=== PATIENT | male | born 1945 | race Two or more races ===

== ENCOUNTER 2025-03-17 17:30 | Inpatient (IN) | payer OTHER ==
[~2025-03-17] VITALS: Ht 162.6 cm; Wt 60.0 kg
[2025-03-17 18:00] LABS: Hematocrit 41.3 % (41.0-53.0); Hemoglobin 13.6 g/dL (13.5-17.5); Mean Corpuscular Hemoglobin 28.0 pg (28.0-32.0); Mean Corpuscular Volume 85.0 fL (80.0-100.0); Nucleated Red Blood Cells % 0.1 %
[2025-03-17 18:18] LABS: Chloride 100 mmol/L (98-107); Potassium 4.2 mmol/L (3.5-5.1); Sodium 140 mmol/L (136-145)
[2025-03-17 18:19] LABS: Anion Gap 12 (5-15); Carbon Dioxide 28 mmol/L (20-31)
[2025-03-17 18:20] LABS: Calcium 10.0 mg/dL (8.7-10.4)
[2025-03-17 18:24] LABS: BUN/Creatinine Ratio 13.3 (10.0-20.0); Blood Urea Nitrogen 13 mg/dL (9-23)
[2025-03-17 18:57] LABS: Glucose 136 mg/dL (74-106)
--- NOTE | 2025-03-17 19:13 | DVH ---
CHEST RADIOGRAPH INDICATION: CHEST PAIN TECHNIQUE: Frontal and lateral view of the chest was obtained COMPARISON: XR CHEST 2 VIEW on DOS: 03/05/25 FINDINGS/IMPRESSION: The lungs are clear. The cardiomediastinal silhouette is unremarkable. No pleural effusion or pneumothorax. No acute osseous abnormality.
--- NOTE | 2025-03-17 19:51 | ED.PDOC ---
History of Present Illness HPI Comments This is a 79-year-old male who comes in with chief complaint of shortness a breath as well as some chest pressure. The patient states that he went to the urgent care after he was experiencing approximately two days of chest pain that has substernal and radiates towards the back. He describes the pain as pres sure-like in nature. It is associated with shortness for breath but no nausea or vomiting. When the paramedics arrived, the patient was also hypertensive with a systolic over 200. EN route, the patient had an IV Hep-Lock established and the patient was given aspirin as well as one dose of nitroglycerin. At this time the patient is denying any chest pain. Chief Complaint: Chest Pain Time Seen by MD: 17:41 Reviewed Notes: Nurses Notes, Senior Occupational Therapist Notes, Medications, Allergies (No allergies to medications) Allergies: Coded Allergies: NO KNOWN ALLERGIES (Unverified , 03/17/25) Information Source: Patient, Emergency Med Personnel Mode of Arrival: EMS Severity: Moderate Timing: Days (Symptoms started two days ago) Duration: Since onset Prehospital treatment: 12 Lead EKG, ASA, Furniture Salesperson, IVF, NTG (Nitroglycerin x1 dose) Location: Substernal chest pain that radiates towards the back Associated signs and symptoms The chest pain is pressure-like and associated with some shortness for breath Past Medical History PAST MEDICAL HISTORY: HTN Surgical History: Denies all surgeries Family History Family History: No family hx of Cancer, No family hx of DM, No family hx of Heart marcos Social History Smoker: Non-Smoker Alcohol: Denies ETOH Use Drugs: Denies Drug Use Lives In: Home Constitutional: denies: chills, diaphoresis, fatigue, fever, malaise, sweats, weakness, others EENTM: denies: blurred vision, double vision, ear bleeding, ear discharge, ear drainage, ear pain, ear ringing, eye pain, eye redness, hearing loss, mouth pain , mouth swelling, nasal discharge, nose bleeding, nose congestion, nose pain, photophobia, tearing, throat pain, throat swelling, voice changes, others Respiratory: denies: cough, hemoptysis, orthopnea, SOB at rest, shortness of breath, SOB with excertion, stridor, wheezing, others Cardiovascular: denies: chest pain, dizzy spells, diaphoresis, Dyspnea on exertion, edema, irregular heart beat, left arm pain, lightheadedness, palpitations, PND, syncope, others Gastrointestinal: denies: abdomen distended, abdominal pain, blood streaked bowels, constipated, diarrhea, dysphagia, difficulty swallowing, hematemesis, melena, nausea, poor appetite, poor fluid intake, rectal bleeding, rectal pain, vomiting, others Genitourinary: denies: burning, dysuria, flank pain, frequency, hematuria, incontinence, penile discharge, penile sore, pain, testicle pain, testicle swelling, urgency, others Neurological: denies: dizziness, fainting, headache, left sided numbness, left sided weakness, numbness, paresthesia, pre-existing deficit, right sided numbness, right sided weakness, seizure, speech problems, tingling, tremors, weakness, others Musculoskeletal: denies: back pain, gout, joint pain, joint swelling, muscle pain, muscle stiffness, neck pain, others Integumetry: denies: bruises, change in color, change in hair/nails, dryness, laceration, lesions, lumps, rash, wounds, others Allergic/Immunocompromised: denies: Difficulty Healing, Frequent Infections, Hives, Itching, others Hematologic/Lymphatic: denies: anemia, blood clots, easy bleeding, easy bruising, swollen glands, others Endocrine: denies: excessive hunger, excessive sweating, excessive thirst, excessive urination, flushing, intolerance to cold, intolerance to heat, unexplained weight gain, unexplained weight loss, others Psychiatric: denies: anxiety, bipolar disorder, depression, hopeless, panic disorder, schizophrenia, sleepless, suicidal, others Physical Exam General Appearance: Moderate Distress HEENT: Normal ENT Inspection, Pharynx Normal, TMs Normal Neck: Full Range of Motion, Non-Tender, Normal, Normal Inspection Respiratory: Chest Non-Tender, Lungs Clear, No Accessory Muscle Use, No Respiratory Distress, Normal Breath Sounds Cardiovascular: No Edema, No JVD, No Murmur, No Gallop, Normal Peripheral Pulses, Regular Rate/Rhythm Breast Exam: Deferred Gastrointestinal: No Organomegaly, Non Tender, No Pulsatile Mass, Normal Bowel Sounds, Soft Genitalia: Deferred Pelvic: Deferred Rectal: Deferred Extremities: No calf tenderness, Normal capillary refill, Normal inspection, Normal range of motion, Non-tender, No pedal edema Musculoskeletal : Apperance: Normal Neurologic: Alert, automotive maintenance technician II-XII nml as Tested, No Motor Deficits, Normal Affect, Normal Mood, No Sensory Deficits Cerebellar Function: Normal Reflexes: Normal Skin: Dry, Normal Color, Warm Lymphatic: No Adenopathy Was a procedure done? Was a procedure done?: No EKG EKG : Pulse Rate (adult): 74 [place]: Normal Cardiac Rhythm: NSR Block: None Differential Dx Considerations may include: ACS, SC, generalized weakness, CHF X-Ray, Labs, Meds, VS Vital Signs Date Time Temp Pulse Resp B/P (MAP) Pulse Ox O2 Delivery O2 Flow Rate FiO2 03/17/25 18:44 76 03/17/25 17:44 76 03/17/25 17:32 98.4 78 20 175/106 97 98.4 Lab Test 03/17/25 19:20 03/17/25 17:44 Range/Units Troponin I High Sensitivity 17 16 </=54 ng/L White Blood Count 8.9 4.4-10.8 10^3/uL Red Blood Count 4.85 4.5-5.90 10^6/uL Hemoglobin 13.6 13.5-17.5 g/dL Hematocrit 41.3 41.0-53.0 % Mean Corpuscular Volume 85.0 80.0-100.0 fL Mean Corpuscular Hemoglobin 28.0 28.0-32.0 pg Mean Corpuscular Hemoglobin Concent 33.0 32.0-36.0 g/dL Red Cell Distribution Width 13.4 11.8-14.3 % Platelet Count 300 140-450 10^3/uL Mean Platelet Volume 7.5 6.9-10.8 fL Neutrophils (%) (Auto) 80.6 H 37.0-80.0 % Lymphocytes (%) (Auto) 13.4 10.0-50.0 % Monocytes (%) (Auto) 5.4 0.0-12.0 % Eosinophils (%) (Auto) 0.1 0.0-7.0 % Basophils (%) (Auto) 0.5 0.0-2.0 % Neutrophils # (Auto) 7.2 1.6-8.6 10 ^3/uL Lymphocytes # (Auto) 1.2 0.4-5.4 10 ^3/uL Monocytes # (Auto) 0.5 0-1.3 10 ^3/uL Eosinophils # (Auto) 0 0-0.8 10 ^3/uL Basophils # (Auto) 0 0-0.2 10 ^3/uL Nucleated Red Blood Cells 0.1 % Sodium Level 140 136-145 mmol/L Potassium Level 4.2 3.5-5.1 mmol/L Chloride Level 100 98-107 mmol/L Carbon Dioxide Level 28 20-31 mmol/L Anion Gap 12 5-15 Blood Urea Nitrogen 13 9-23 mg/dL Creatinine 0.98 0.700-1.30 mg/dL Glomerular Filtration Rate Calc 79 >90 mL/min BUN/Creatinine Ratio 13.3 10.0-20.0 Serum Glucose 136 H 74-106 mg/dL Calcium Level 10.0 8.7-10.4 mg/dL IV Hep-Lock was established The CBC and chemistry panel are within normal limits The 1st troponin level is negative The chest x-ray shows: No sign of any abnormalities At this time, the patient is being admitted to the hospitalist The patient understands and agrees with the management A cardiology consult will be obtained Images Reviewed?: Images reviewed and evaluated by me Time of 1ST Reevaluation: 19:50 Reevaluation 1ST: Unchanged Patient Education/Counseling: Diagnosis, Treatment, Prognosis Family Education/Counseling: No Family Present SEPSIS Sepsis Screen Date sepsis recognized/suspect: Mar 17, 2025 Time Sepsis recognized/suspect: 1731 Recent Procedure: No On Antibiotic Therapy: No Respiratory Rate >20: No Heart Rate >90: No Temp<36 C (96.8 F) or >38.3 C: No SBP <90 or MAP <65 mmHG: No New Acute Mental Status Change: No Is the patient on CPAP, BIPAP,: No Physician Orders Chest Two Views Routine (03/17/25 18:15) Electrocardigram (03/17/25 17:38) Troponin-I Hs (03/17/25 20:38) Electrocardigram (03/17/25 18:38) Electrocardigram (03/17/25 20:38) Heplock Iv (03/17/25 ) Vital Signs Date Time Temp Pulse Resp B/P (MAP) Pulse Ox O2 Delivery O2 Flow Rate FiO2 03/17/25 18:44 76 03/17/25 17:44 76 03/17/25 17:32 98.4 78 20 175/106 97 98.4 Laboratory Tests Test 03/17/25 17:44 White Blood Count 8.9 10^3/uL (4.4-10.8) Departure 1 Departure Time of Disposition: 19:51 Impression: Primary Impression: Acute myocardial ischemia Disposition: 09 ADMITTED INPATIENT Admit to: Tele Condition: Fair Critical Care Note Critical Care Time?: Yes (45 min-critical care time only) Stability Stability form required: Yes Unstable for transfer: Telemetry monitoring (Telemetry monitoring required), ED Physician Assesment (Clinical assesment) Heart Score Heart Score: Heart Score Response (Comments) Value History Moderate Suspicious 1 EKG Repolarization Disturb 1 Age >65 2 Risk Factors 1 or 2 risk factors 1 Troponin Normal limit 0 Total 5 CHRISTOPHER RODAS MD Mar 17, 2025 19:51
[2025-03-17] MEDS: ONDANSETRON HCL 4 MG/2 ML VIAL IV ONE (20:41)
[2025-03-17] MEDS: MORPHINE SULFATE INJ 2 MG/ml SYRG IV ONE (20:41)
[2025-03-17 20:46] VITALS: PULSE 96; RESP 16; O2SAT 98
[2025-03-17] MEDS ORDERED: ACETAMINOPHEN 325 MG TAB PO PRN (22:15)
[2025-03-17] MEDS ORDERED: ONDANSETRON HCL 4 MG/2 ML VIAL IV PRN (22:15)
[2025-03-17] MEDS ORDERED: MORPHINE SULFATE INJ 2 MG/ml SYRG IV PRN ×2 (22:15)
--- NOTE | 2025-03-17 22:51 | DVH ---
CLINICAL HISTORY: back pain TECHNIQUE: 2 views of the lumbar spine were obtained. COMPARISON: XR LUMBAR SPINE 2-3 VIEW on DOS: 03/05/25 FINDINGS: There straightening of the normal lumbar lordosis. The vertebral body heights are maintained. There is multilevel intervertebral disc space loss, worse/[id number] at L2-L3. There are scattered endplate osteophytes. No acute fracture or dislocation is seen. IMPRESSION: NO ACUTE RADIOGRAPHIC ABNORMALITY OF THE LUMBAR SPINE.
[2025-03-17] MEDS: LABETALOL HCL 20 MG/4 ML VL IV PRN (23:08)
[2025-03-17] MEDS: HYDROcodone-ACET 5/325MG TAB PO PRN (23:08)
[2025-03-18] VITALS (7 sets, daily range): BP systolic 148–196; BP diastolic 71–92; PULSE 72–92; RESP 14–18; TEMP 97.7–98.7; O2SAT 95–100
[2025-03-18] MEDS: NITROGLYCERIN 0.4 MG SL TAB SL PRN (00:15)
--- NOTE | 2025-03-18 01:37 | DVHHP2 ---
YAMILA STALLWORTH BUTTON RECLAIMER 03/18/25 0137: History of Present Illness Reason for Visit: Chest pain History of Present Illness Information in this HPI is limited due to the patient being a poor historian. States he does not know his past medical history except for hypertension. 79-year-old male with past medical history of hypertension presents with complaints of shortness of breath and chest pressure x2 days. Patient initially went to [facility] urgent care where she was deferred to go to the emergency department for symptoms. Chest pain is substernal and pressure-like. Patient is also complaining of low back pain. EN route to the hospital with the patient was treated with SL NTG, and aspirin. On arrival to the emergency department patient was hypertensive with a blood pressure 175/106 with a heart rate 78. During the emergency department evaluation troponins /. CBC: W8.9, H&H 30.6/41.3, PLT 300. BMP: Na 140, K4.2, BUN 13, creatinine 0.98, GFR 79. At this time patient is also complaining of back pain radiating into his right leg. There are no complaints of fevers, chills, dizziness, headaches, palpitations, leg swelling. Cardiovascular: HTN Smoke: No ALCOHOL: none Drugs: None Lives: Other Review of Systems Constitutional: No: Fever, Chills, Sweats, Weakness, Malaise, Other Eyes: No: Pain, Vision change, Conjunctivae inflammation, Eyelid inflammation, Other, Redness ENT: No: Ear pain, Ear discharge, Nose pain, Nose discharge, Nose congestion, Mouth pain, Mouth swelling, Throat pain, Throat swelling, Other Respiratory: Shortness of breath; No: Cough, Dry, SOB with excertion, Wheezing, Hemoptysis, Pleuritic Pain, Sputum, Wheezing, Other Cardiovascular: Chest Pain; No: Palpitations, Orthopnea, Paroxysmal Noc. Dyspnea, Edema, Lt Headedness, Other Gastrointestinal: No: Nausea, Vomiting, Abdominal Pain, Diarrhea, Constipation, Melena, Hematochezia, Other Genitourinary: No Dysuria, No Frequency, No Incontinence, No Hematuria, No Ret ention, No Other Musculoskeletal: back pain; No: other, neck pain, shoulder pain, arm pain, hand pain, leg pain, foot pain Skin: No: Rash, Lesions, Jaundice, Bruising, Other Neurological: No: Weakness, Numbness, Incoordination, Change in speech, Confusion, Seizures, Other Allergies: Coded Allergies: NO KNOWN ALLERGIES (Unverified , 03/17/25) Medications Current Medications Medications Dose Ordered Sig/Conor Route Start Time Stop Time Status Last Admin Dose Admin Acetaminophen 650 mg Q6HP PRN PO 03/17/25 22:15 Acetaminophen/ Hydrocodone Bitart 1 tab Q6HPRN PRN PO 03/17/25 22:15 03/17/25 23:08 1 TAB Ondansetron HCl 4 mg Q4HP PRN IV 03/17/25 22:15 Morphine Sulfate 2 mg Q4HPRN PRN IV 03/17/25 22:15 Enoxaparin Sodium 40 mg DAILY SC 03/18/25 10:00 Nitroglycerin 0.4 mg Q5MINP PRN SL 03/17/25 22:15 03/18/25 00:15 0.4 MG Morphine Sulfate 2 mg Q30M PRN IV 03/17/25 22:15 Aspirin 81 mg DAILY PO 03/18/25 10:00 Labetalol HCl 10 mg Q4HPRN PRN IV 03/17/25 22:15 03/17/25 23:08 10 MG Exam Vital Signs Vital Signs Date Time Temp Pulse Resp B/P (MAP) Pulse Ox O2 Delivery O2 Flow Rate FiO2 03/18/25 00:23 70 16 106/66 (79) 94 03/17/25 20:46 Room Air* 0 21 03/17/25 20:44 98.3 98.3 General Appearance: Alert, Oriented X3, mild distress HEENT: Atraumatic, PERRLA, EOMI Respiratory: Clear to auscultation, Normal air movement Cardiovascular: Regular rate, Normal S1, Normal S2 Abdominal: Normal bowel sounds, Soft, No tenderness Extremities: No edema Neuro: Normal speech, Strength at 5/5 X4 ext Psych/Mental Status: Mental status NL, Mood NL Labs/Xrays Labs Test 03/17/25 19:20 03/17/25 17:44 Range/Units Troponin I High Sensitivity 17 </=54 ng/L White Blood Count 8.9 4.4-10.8 10^3/uL Red Blood Count 4.85 4.5-5.90 10^6/uL Hemoglobin 13.6 13.5-17.5 g/dL Hematocrit 41.3 41.0-53.0 % Mean Corpuscular Volume 85.0 80.0-100.0 fL Mean Corpuscular Hemoglobin 28.0 28.0-32.0 pg Mean Corpuscular Hemoglobin Concent 33.0 32.0-36.0 g/dL Red Cell Distribution Width 13.4 11.8-14.3 % Platelet Count 300 140-450 10^3/uL Mean Platelet Volume 7.5 6.9-10.8 fL Neutrophils (%) (Auto) 80.6 H 37.0-80.0 % Lymphocytes (%) (Auto) 13.4 10.0-50.0 % Monocytes (%) (Auto) 5.4 0.0-12.0 % Eosinophils (%) (Auto) 0.1 0.0-7.0 % Basophils (%) (Auto) 0.5 0.0-2.0 % Neutrophils # (Auto) 7.2 1.6-8.6 10 ^3/uL Lymphocytes # (Auto) 1.2 0.4-5.4 10 ^3/uL Monocytes # (Auto) 0.5 0-1.3 10 ^3/uL Eosinophils # (Auto) 0 0-0.8 10 ^3/uL Basophils # (Auto) 0 0-0.2 10 ^3/uL Nucleated Red Blood Cells 0.1 % Sodium Level 140 136-145 mmol/L Potassium Level 4.2 3.5-5.1 mmol/L Chloride Level 100 98-107 mmol/L Carbon Dioxide Level 28 20-31 mmol/L Anion Gap 12 5-15 Blood Urea Nitrogen 13 9-23 mg/dL Creatinine 0.98 0.700-1.30 mg/dL Glomerular Filtration Rate Calc 79 >90 mL/min BUN/Creatinine Ratio 13.3 10.0-20.0 Serum Glucose 136 H 74-106 mg/dL Calcium Level 10.0 8.7-10.4 mg/dL SEPSIS Sepsis Screen Date sepsis recognized/suspect: Mar 17, 2025 Time Sepsis recognized/suspect: 1731 Recent Procedure: No On Antibiotic Therapy: No Respiratory Rate >20: No Heart Rate >90: No Temp<36 C (96.8 F) or >38.3 C: No SBP <90 or MAP <65 mmHG: No New Acute Mental Status Change: No Is the patient on CPAP, BIPAP,: No Physician Orders Chest Two Views Routine (03/17/25 18:15) Electrocardigram (03/17/25 17:38) Electrocardigram (03/17/25 18:38) Electrocardigram (03/17/25 20:38) Heplock Iv (03/17/25 ) Admit (03/17/25 22:06) Code Status (03/17/25:) Vital Signs .PER UNIT PROTOCOL (03/17/25:) Review Orders With Adm.Md (03/17/25:) Encourage Activity As Tolerate (03/17/25:) Consistent Carb(Ccho)Diabetes (03/18/25 Breakfast) Oxygen By Face Mask (03/17/25:) Acetaminophen Tablet (Tylenol Tablet) (03/17/25 22:15) Notify Md Of Changes From Base (03/17/25 22:06) Advance Directive (03/17/25:06) Echo 2d Mode Cardiac Dop (03/17/25 22:06) Basic Metabolic Panel (03/18/25 05:00) Basic Metabolic Panel (03/19/25 05:00) Basic Metabolic Panel (03/20/25 05:00) Complete Blood Count (03/18/25 05:00) Complete Blood Count (03/19/25 05:00) Complete Blood Count (03/20/25 05:00) Patient Condition (03/17/25 22:06) Allergies (03/17/25 22:06) Hydrocodone-Acet 5/325mg Tab ([place] 5/32 (03/17/25 22:15) Ondansetron Hcl (Zofran) (03/17/25 22:15) Morphine Sulfate Injection (03/17/25 22:15) Enoxaparin Sodium (Lovenox) (03/18/25 10:00) Sequential Compression Device (03/17/25 ) Nitroglycerin Sublingual (Ntrostat Subli (03/17/25 22:15) Morphine Sulfate Injection (03/17/25 22:15) Stat Ekg For Chest Pain (03/17/25 22:06) Notify Md Of Changes From Base (03/17/25 22:06) Draw Tender For 24 Hours (03/17/25 22:06) Emergency Dysrhythmia Protocol (03/17/25 22:06) Rhythm Strips Once Every Shift (03/17/25 22:06) Oxygen By Nasal Cannula (03/17/25 22:06) * Cardiology Consult (03/17/25 22:06) Aspirin Chewable Tablet (03/18/25 10:00) Labetalol Hcl (Labetalol Hcl) (03/17/25 22:15) Lumbar Spine 3 View (03/17/25 22:06) Clonidine Hcl Tablet (Catapres Tablet) (03/18/25 01:30) Vital Signs Date Time Temp Pulse Resp B/P (MAP) Pulse Ox O2 Delivery O2 Flow Rate FiO2 03/18/25 00:23 70 16 106/66 (79) 94 03/18/25 00:20 106/66 03/18/25 00:15 196/99 03/18/25 00:01 76 196/99 03/17/25 23:08 97 194/111 03/17/25 21:06 77 03/17/25 20:46 96 16 98 Room Air* 0 21 03/17/25 20:44 98.3 96 16 186/115 (138) 98 98.3 03/17/25 19:51 74 03/17/25 18:44 76 03/17/25 17:44 76 03/17/25 17:32 98.4 78 20 175/106 97 98.4 Laboratory Tests Test 03/17/25 17:44 White Blood Count 8.9 10^3/uL (4.4-10.8) Medications Medications Dose Ordered Sig/Conor Route Start Time Stop Time Status Last Admin Dose Admin Acetaminophen/ Hydrocodone Bitart 1 tab Q6HPRN PRN PO 03/17/25 22:15 03/17/25 23:08 1 TAB Labetalol HCl 10 mg Q4HPRN PRN IV 03/17/25 22:15 03/17/25 23:08 10 MG Nitroglycerin 0.4 mg Q5MINP PRN SL 03/17/25 22:15 03/18/25 00:15 0.4 MG Ondansetron HCl 4 mg ONCE ONCE IV 03/17/25 18:00 03/17/25 18:01 DC 03/17/25 20:41 4 MG Assessment/Plan Assessment/Plan Chest pain Malignant hypertension Plan Admit to telemetry Cardiology consult. Echocardiogram. As needed antihypertensive for optimal BP management. ASA. SL NTG for CP. As needed a supplemental O2 to maintain oxygen saturation greater than 93%. As needed analgesia Physical therapy evaluation Social service consult DVT PPX Lovenox Plan discussed with: Patient My Orders Orders - YAMILA STALLWORTH NP Procedure Category Date Status Time Admit ADMIT 03/17/25 Transmitted 22:06 Code Status CODE 03/17/25 Transmitted 22:06 Vital Signs SHARMILA 03/17/25 In Process 22:06 Review Orders With SHARMILA 03/17/25 In Process Adm.Md 22:06 Encourage Activity As SHARMILA 03/17/25 In Process Tolerate 22:06 Consistent DIET 03/18/25 Transmitted Carb(Ccho)Diabetes Breakfast Oxygen By Face Mask RT 03/17/25 Transmitted 22:06 Acetaminophen Tablet PHA 03/17/25 In Process (Tylenol Tablet) 22:15 Notify Of Changes SHARMILA 03/17/25 In Process From Base 22:06 Advance Directive SHARMILA 03/17/25 In Process 22:06 Echo 2d Mode Cardiac US 03/17/25 Logged DOP 22:06 Basic Metabolic Panel LAB 03/18/25 Logged 05:00 Basic Metabolic Panel LAB 03/19/25 Verified 05:00 Basic Metabolic Panel LAB 03/20/25 Verified 05:00 Complete Blood Count LAB 03/18/25 Logged 05:00 Complete Blood Count LAB 03/19/25 Verified 05:00 Complete Blood Count LAB 03/20/25 Verified 05:00 Patient Condition ORDERS 03/17/25 Transmitted 22:06 Allergies SHARMILA 03/17/25 In Process 22:06 Hydrocodone-Acet PHA 03/17/25 In Process 5/325mg Tab ([place] 22:15 Ondansetron Hcl PHA 03/17/25 In Process (Zofran) 22:15 Morphine Sulfate PHA 03/17/25 In Process Injection 22:15 Enoxaparin Sodium PHA 03/18/25 In Process (Lovenox) 10:00 Sequential SHARMILA 03/17/25 In Process Compression Device Nitroglycerin PHA 03/17/25 In Process Sublingual (Ntrostat 22:15 Morphine Sulfate PHA 03/17/25 In Process Injection 22:15 Stat Ekg For Chest SHARMILA 03/17/25 In Process Pain 22:06 Notify Of Changes SHARMILA 12/22/25 In Process From Base 22:06 Draw Tender For SHARMILA 03/17/25 In Process 24 Hours 22:06 Emergency Dysrhythmia SHARMILA 03/17/25 In Process Protocol 22:06 Rhythm Strips Once SHARMILA 03/17/25 In Process Every Shift 22:06 Oxygen By Nasal RT 03/17/25 Transmitted Cannula 22:06 * Cardiology Consult CONS 03/17/25 Transmitted 22:06 Aspirin Chewable PHA 03/18/25 In Process Tablet 10:00 Labetalol Hcl PHA 03/17/25 In Process (Labetalol Hcl) 22:15 Lumbar Spine 3 View XY 03/17/25 Resulted 22:06 Clonidine Hcl Tablet PHA 03/18/25 Verified (Catapres Tablet) 01:30 Date of Service: Mar 18, 2025 Billing Provider: CR HARMAN MD Common Visit Codes: NOT BILLABLE CR HARMAN MD 03/18/25 1401: Review of Systems Allergies: Coded Allergies: NO KNOWN ALLERGIES (Unverified , 03/17/25) Additional Comments Additional Comments Additional Comments Patient's chart is reviewed and discussed with the nurse practitioner. Patient is seen and evaluated and admitted by [employer]ER prosthodontist/educator. I agree with his evaluation, documentation, assessment and care plan as outlined. Patient is seen and evaluated by me in person today. Discussed with the nurse regarding care plan. Additional Comments Additional Comments Additional Comments Patient's chart is reviewed and discussed with the nurse practitioner. Patient is seen evaluated and admitted by [employer] prosthodontist/educator. I agree with his evaluation, documentation, assessment and care plan as outlined. Patient is seen and evaluated by me in person today. Discussed with the nurse regarding care plan. YAMILA STALLWORTH NP Mar 18, 2025 01:37 CR HARMAN MD Mar 18, 2025 14:01
[2025-03-18] MEDS ORDERED: MORPHINE SULFATE 4 MG/ML SYR/VIAL IV PRN (08:30)
[2025-03-18] MEDS: ENOXAPARIN SOD 40 MG/0.4 ML SYRINGE SC SCH (09:05)
[2025-03-18] MEDS: MORPHINE SULFATE 4 MG/ML SYR/VIAL IV PRN (09:10)
[2025-03-18] MEDS ORDERED: PNEUMOCOCCAL VACC POLYS 25 MCG/0.5 ML VIAL IM ONE (10:00)
[2025-03-18 10:34] LABS: Hematocrit 42.3 % (41.0-53.0); Hemoglobin 14.3 g/dL (13.5-17.5); Mean Corpuscular Hemoglobin 28.9 pg (28.0-32.0); Mean Corpuscular Volume 85.6 fL (80.0-100.0); Nucleated Red Blood Cells % 0.0 %
[2025-03-18 10:40] LABS: Chloride 102 mmol/L (98-107); Potassium 4.5 mmol/L (3.5-5.1); Sodium 138 mmol/L (136-145)
[2025-03-18 10:41] LABS: Anion Gap 10 (5-15); Calcium 10.0 mg/dL (8.7-10.4); Carbon Dioxide 26 mmol/L (20-31)
[2025-03-18 10:46] LABS: BUN/Creatinine Ratio 14.0 (10.0-20.0); Blood Urea Nitrogen 17 mg/dL (9-23); Triglycerides 61 mg/dL (< 150)
[2025-03-18 10:47] LABS: Glucose 193 mg/dL (74-106); Magnesium 2.1 mg/dL (1.6-2.6)
[2025-03-18 10:50] LABS: Cholesterol 264 mg/dL (< 200); HDL Cholesterol 71 mg/dL (40-59)
[2025-03-18] MEDS: LOSARTAN POTASSIUM 50 MG TAB PO ONE (13:07)
--- NOTE | 2025-03-18 13:10 | DVHINCON2 ---
Date Seen: Mar 18, 2025 Referring Physician LIBAN Harvey Reason for Consultation Chest pain History of Present Illness This is a primarily [place] speaking 79-year-old male patient who presents to emergency room with chief complaint of chest pain. A virtual color print inspector was used at time of assessment (ID: [id number]). The patient reports he has been experiencing chest pain for approximately one month. He describes the chest pain as unprovoked, intermittent, pressure-like in nature, substernal and nonradiating. Associated symptoms include shortness of breath. He reports that he did not seek out for medical attention because he was trying to control his health at home. He decided to come to the emergency room for further evaluation. Cardiology has now been consulted for chest pain and elevated blood pressure. Initial twelve lead electrocardiogram reveals normal sinus rhythm with ST segment depression to lateral leads and ST segment changes noted to anteroseptal leads (business services associate reviewed EKG). Initial troponin level of 16ng/L with flat trend thereafter. At the time of assessment, the patient has no cardiac complaints. Significant past medical history includes hypertension and dyslipidemia. The patient does not have a business services associate in the outpatient setting and states he has never had any sort of cardiac workup in the past. It is worth noting, that the patient is a very poor historian. Past Medical History Past medical history reviewed. No other significant than mentioned above. Past Surgical History Denies any previous surgeries Family History: Patient reports no known family medical history. Family History Family history reviewed. Social History Denies the use of tobacco, alcohol or illicit drugs. Allergies: Coded Allergies: NO KNOWN ALLERGIES (Unverified , 03/17/25) Home Meds Home medications reviewed. Current Medications Current Medications Medications (Trade) Dose Ordered Sig/Conor Route PRN Reason Start Time Stop Time Status Last Admin Acetaminophen (Tylenol Tablet) 650 mg Q6HP PRN PO PAIN SCALE 1-3 OR TEMP>100.4 03/17/25 22:15 Acetaminophen/ Hydrocodone Bitart ([place] 5/325MG Tab) 1 tab Q6HPRN PRN PO MODERATE PAIN (4-6 PAIN SCALE) 03/17/25 22:15 03/18/25 04:01 Ondansetron HCl (Zofran) 4 mg Q4HP PRN IV NAUSEA / VOMITING 03/17/25 22:15 Morphine Sulfate 2 mg Q4HPRN PRN IV SEVERE PAIN (7-10 PAIN SCALE) 03/17/25 22:15 03/18/25 08:23 DC Enoxaparin Sodium (Lovenox) 40 mg DAILY SC 03/18/25 10:00 03/18/25 09:05 Nitroglycerin (Ntrostat Sublingual) 0.4 mg Q5MINP PRN SL FOR CHEST PAIN 03/17/25 22:15 03/18/25 00:15 Morphine Sulfate 2 mg Q30M PRN IV FOR CHEST PAIN 03/17/25 22:15 03/18/25 08:24 DC Aspirin 81 mg DAILY PO 03/18/25 10:00 03/18/25 09:04 Labetalol HCl (Labetalol HCl) 10 mg Q4HPRN PRN IV SBP>160 03/17/25 22:15 03/18/25 12:40 DC 03/18/25 10:03 Clonidine HCl (Catapres Tablet) 0.1 mg BID PRN PO SBP > 180 03/18/25 01:30 Morphine Sulfate 2 mg Q4HPRN PRN IV SEVERE PAIN (7-10 PAIN SCALE) 03/18/25 08:30 03/18/25 09:10 Morphine Sulfate 2 mg Q30M PRN IV FOR CHEST PAIN 03/18/25 08:30 Losartan Potassium (Cozaar Tablet) 50 mg DAILY PO 03/19/25 10:00 UNV Hydralazine HCl (Apresoline Injection) 10 mg Q6HP PRN IV SBP>150 03/18/25 12:45 UNV Review of Systems Constitutional: No symptom reported Ears, Nose, & Throat: No symptom reported Eyes: No symptom reported Neurological: No symptoms reported Pulmonary/Respiratory: Shortness of breath Cardiovascular: Chest pain Gastrointestinal: No symptom reported Genitourinary: No symptom reported Musculoskeletal: No symptom reported Skin: No symptom reported Psychiatric: No symptom reported Endocrine: No symptom reported Hematologic/Lymphatic: No symptom reported Vital Signs Vital Signs Date Time Temp Pulse Resp B/P (MAP) Pulse Ox O2 Delivery O2 Flow Rate FiO2 03/18/25 10:03 89 174/99 03/18/25 09:47 18 03/18/25 09:10 98.0 99 98.0 03/18/25 03:44 Room Air* 0 21 Physical Exam General Appearance: Cooperative. Well-developed. Well-nourished. No acute distress. Pulmonary/Respiratory: Clear, bilateral breaths sounds. Cardiovascular/Chest: Regular rate and rhythm. Peripheral Pulses: 2+ Radial (R). 2+ Radial (L). 2+ Pedal (R). 2+ Pedal (L) Abdominal Exam: Normal bowel sounds. Ankle Exam: Negative ankle edema Lower extremities: Negative lower extremity edema Neuro/Mental Status: A/OX4, coherent. Thoughts/Psych: Normal thought pattern. Appropriate mood and affect. Good judgment and insight. Appearance: No acute distress. Skin Exam: Normal inspection. Normal color. Warm and dry. Labs/Diagnostic Data Labs Test 03/18/25 10:06 03/17/25 19:20 Range/Units White Blood Count 10.2 4.4-10.8 10^3/uL Red Blood Count 4.94 4.5-5.90 10^6/uL Hemoglobin 14.3 13.5-17.5 g/dL Hematocrit 42.3 41.0-53.0 % Mean Corpuscular Volume 85.6 80.0-100.0 fL Mean Corpuscular Hemoglobin 28.9 28.0-32.0 pg Mean Corpuscular Hemoglobin Concent 33.8 32.0-36.0 g/dL Red Cell Distribution Width 13.3 11.8-14.3 % Platelet Count 301 140-450 10^3/uL Mean Platelet Volume 7.8 6.9-10.8 fL Neutrophils (%) (Auto) 85.5 H 37.0-80.0 % Lymphocytes (%) (Auto) 9.2 L 10.0-50.0 % Monocytes (%) (Auto) 5.1 0.0-12.0 % Eosinophils (%) (Auto) 0.0 0.0-7.0 % Basophils (%) (Auto) 0.2 0.0-2.0 % Neutrophils # (Auto) 8.7 H 1.6-8.6 10 ^3/uL Lymphocytes # (Auto) 0.9 0.4-5.4 10 ^3/uL Monocytes # (Auto) 0.5 0-1.3 10 ^3/uL Eosinophils # (Auto) 0 0-0.8 10 ^3/uL Basophils # (Auto) 0 0-0.2 10 ^3/uL Nucleated Red Blood Cells 0.0 % Sodium Level 138 136-145 mmol/L Potassium Level 4.5 3.5-5.1 mmol/L Chloride Level 102 98-107 mmol/L Carbon Dioxide Level 26 20-31 mmol/L Anion Gap 10 5-15 Blood Urea Nitrogen 17 9-23 mg/dL Creatinine 1.21 0.700-1.30 mg/dL Glomerular Filtration Rate Calc 61 >90 mL/min BUN/Creatinine Ratio 14.0 10.0-20.0 Serum Glucose 193 H 74-106 mg/dL Hemoglobin A1c 6.1 H <5.7 % A1C Calcium Level 10.0 8.7-10.4 mg/dL Magnesium Level 2.1 1.6-2.6 mg/dL Triglycerides Level 61 < 150 mg/dL Cholesterol Level 264 H < 200 mg/dL LDL Cholesterol 192 H < 100 mg/dL HDL Cholesterol 71 H 40-59 mg/dL Thyroid Stimulating Hormone (TSH) 0.97 0.55-4.78 uIU/mL Troponin I High Sensitivity 17 </=54 ng/L Assessment Chest pain, rule out coronary artery disease Hypertensive urgency Dyslipidemia Rule out structural heart disease Prediabetes Plan/Recommendation We will continue with the following plan/recommendations (Dr. Mei): * Transthoracic echocardiogram to evaluate cardiac function * Chest pain protocol * HEART score: 6 points * Initiate heparin drip per ACS protocol * Single antiplatelet therapy and lipid-lowering agent * Aggressive blood pressure control as tolerated * Close cardiac surveillance Case reviewed and discussed with including review of EKG's. Given the patient's clinical presentation, comorbidities, and significant EKG changes, the patient was offered a coronary angiogram with left heart catheterization. A virtual [place] color print inspector was used to explain procedure the patient. The procedure was discussed with the patient in full detail including risks and benefits. Risks include but are not limited to bleeding, contrast-induced nephropathy, coronary dissection, stroke, and even . The patient understands and is agreeable to undergo the procedure. We will schedule the patient at soonest availability on 03/19/2025. Thank you for allowing us to care for this patient. Please call with any questions or concerns. Critical care time spent: 44 minutes This medical document was created using an electronic medical record system with voice recognition software and computerized dictation system. Although this document has been carefully reviewed, there might still be some phonetic and typographical errors. Occasional wrong-word or ``sound-alike substitutions may have occurred due to the inherent limitations of voice recognition software. These areas are purely typographical due to imperfections of the software programs and do not reflect any compromise in the patient's medical care. Please read the chart carefully and recognize, using context, where these substitutions have occurred. Plan discussed with: Patient NYHA Physical activity limitations: NA Date of Service: Mar 18, 2025 Billing Provider: MARGARITA CURIEL Cardiology Common Codes: [id number] INP/OBS CARE (High) Cardiology Consultation Codes: [id number] CONSULT <45MIN MARGARITA CURIEL Mar 18, 2025 13:10
[2025-03-18] MEDS ORDERED: HEPARIN SODIUM (PORCINE) 5000 UNITS/ML 1ML VIAL IV ONE (13:15)
[2025-03-18 13:30] LABS: INR 0.95 (0.9-1.15); Partial Thromboplastin Time 29.8 SEC (24.5-34.5); Prothrombin Time 10.1 sec (9.3-11.8)
[2025-03-18] MEDS: LABETALOL HCL 200 MG TAB PO ONE (14:15)
--- NOTE | 2025-03-18 15:02 | DVH ---
EXAM: CT HEAD WITHOUT CONTRAST INDICATION: headache TECHNIQUE: CT of the head without intravenous contrast. Radiation Dose : 1. Head: CT Dose: CTDI volume is 52.26 mGy. Dose-length product is 1029.99 mGy*cm The dose indicators for CT are the volume Computed Tomography (CT) Dose Index (CTDIvol) and the Dose Length Product (DLP), and are measured in units of mGy and mGy-cm, respectively. These indicators are not patient dose, but values generated from the CT scanner acquisition factors. The report includes radiation exposure data for exposures received during this examination. COMPARISON: None FINDINGS: There is no evidence of acute intracranial hemorrhage, extra-axial collection, mass effect, midline shift, herniation or hydrocephalus. Increased prominence of the ventricles, sulci and cisterns consistent with sequelae of atrophic cortical volume loss. The boo-white differentiation is intact. Moderate diffuse confluent periventricular and subcortical white matter hypoattenuation is nonspecific but may be related to small vessel ischemic disease. Sphenoid and left maxillary mucosal sinus disease. The remaining visualized paranasal sinuses and mastoid air cells are clear. The surrounding soft tissues and osseous structures are unremarkable. IMPRESSION: 1. No acute intracranial abnormality. 2. Chronic sequelae of microangiopathy and atrophic cortical volume loss. hs:y Radiation optimization: All CT scans at this facility use at least one of these dose optimization techniques: automated exposure control mA and/or kV adjustment per patient size (includes targeted exams where dose is matched to clinical indication) or iterative reconstruction.
[2025-03-18] MEDS: hydrALAZINE HCL 20 MG/ML VL IV PRN (15:20)
[2025-03-18] MEDS: HEPARIN DRIP/D5W 100UNITS/ML 250 ML IV SCH ×2 (16:05→23:54)
--- NOTE | 2025-03-18 16:11 | CONS ---
Pharmacy Clinical Information: HEPARIN PER RX PROTOCOL SPOKE TO ESTELLE OSORIO REGARDING new heparin drip order CURRENT aPTT: 29.8 on 03/18/2025 at 10:06 BOLUS: NO Initial heparin drip rate: 600 units/hr Date and time new dose started: 03/18/2025 at 16:05 Next aPTT: 03/18/2025 at 22:00 ESTELLE OSORIO READ BACK initial heparin drip rate: 600 UNITS/HR JULISSA Mirza Mar 18, 2025 16:11
[2025-03-18] MEDS: ATORVASTATIN 20 MG TAB PO SCH (21:50)
[2025-03-18] MEDS: LOSARTAN POTASSIUM 50 MG TAB PO SCH (21:51)
[2025-03-18] MEDS: LABETALOL HCL 200 MG TAB PO SCH (21:52)
[2025-03-18 22:48] LABS: INR 0.95 (0.9-1.15); Partial Thromboplastin Time 31.7 SEC (24.5-34.5); Prothrombin Time 10.1 sec (9.3-11.8)
[2025-03-18] MEDS: HEPARIN SODIUM (PORCINE) 5000 UNITS/ML 1ML VIAL IV ONE (23:52)
[2025-03-19] VITALS (7 sets, daily range): BP systolic 125–167; BP diastolic 67–91; PULSE 64–82; RESP 14–18; TEMP 97.7–98.2; O2SAT 92–98
[2025-03-19 06:53] LABS: Hematocrit 40.6 % (41.0-53.0); Hemoglobin 13.1 g/dL (13.5-17.5); Mean Corpuscular Hemoglobin 27.7 pg (28.0-32.0); Mean Corpuscular Volume 85.4 fL (80.0-100.0); Nucleated Red Blood Cells % 0.0 %
[2025-03-19 07:16] LABS: INR 0.97 (0.9-1.15); Partial Thromboplastin Time 42.7 SEC (24.5-34.5); Prothrombin Time 10.3 sec (9.3-11.8)
[2025-03-19 07:20] LABS: Anion Gap 10 (5-15); Carbon Dioxide 27 mmol/L (20-31); Chloride 105 mmol/L (98-107); Potassium 4.0 mmol/L (3.5-5.1); Sodium 142 mmol/L (136-145)
[2025-03-19 07:22] LABS: Calcium 9.4 mg/dL (8.7-10.4)
[2025-03-19 07:26] LABS: BUN/Creatinine Ratio 19.4 (10.0-20.0); Blood Urea Nitrogen 19 mg/dL (9-23)
[2025-03-19 07:27] LABS: Glucose 120 mg/dL (74-106)
[2025-03-19] MEDS: HEPARIN DRIP/D5W 100UNITS/ML 250 ML IV SCH (08:40)
[2025-03-19] MEDS ORDERED: LOSARTAN POTASSIUM 50 MG TAB PO SCH (10:00)
--- NOTE | 2025-03-19 10:43 | DVHSR ---
APPROVED REPORT EXAM: Two-dimensional and M-mode echocardiogram with Doppler and color Doppler. Blood Pressure: 171/80 mmHg INDICATION Chest Pain Uncontrolled HTN RISK FACTORS Height: 5'4", Weight: 160 DIMENSIONS LVDd 4.3 (3.8-5.7cm) LA (2D) 4.1 (1.9-4.0cm) Aortic Root 3.1 (2.0-3.7cm) LVDs 2.9 (2.5-4.0cm) LA (MM) (1.9-4.0cm) Aortic Cusp Exc 1.4 (1.5-2.0cm) EF (%) 60.0 (55-70%) Rt. Atrium 4.2 (1.9-4.0cm) Asc. Aorta cm IVSd 1.3 (0.7-1.1cm) RV (D) 3.9 (1.8-2.4cm) PWd 1.3 (0.7-1.1cm) Mitral Valve Mitral Mitral Stenosis E wave 0.63m/s MV Mean GR. mmHg A wave 1.21m/s MV Peak GR. mmHg E/A ratio 0.5 2D MVA cm2 DECEL Time 153ms PRESS 1/2 Time ms Aortic Valve Aortic Valve Aortic Stenosis V1 0.92m/s AO Mean GR. 5mmHg V2 1.65m/s AO Peak GR. 11mmHg LVOT Diameter 2.0 (1.8-2.4cm) Doppler NATALIO 1.75cm2 Pulmonic Valve V2 0.81m/s Tricuspid Valve TR Velocity 2.90m/s RVSP 37mmHg Conclusion Technically good study. Off axis views. Sinus rhythm. Concentric LVH with biatrial enlargement. Aortic root enlargement. Mild aortic sclerosis without stenosis. The mitral tricuspid and pulmonic or structurally normal. Left ventricular function appears preserved. EF is about 60% with normal RV function. Dopplers unremarkable. Mild aortic insufficiency. Moderate mitral insufficiency. Moderate aortic insufficiency. No pericardial effusion masses or vegetations discernible.
--- NOTE | 2025-03-19 11:28 | DVHPN2 ---
Consult Progress Note Date Seen: Mar 19, 2025 Subjective Review of Systems: CVS:Normal, RESPIRATORY:Normal, NEURO:Normal Other Systems: The patient refused cardiac catheterization. Denies any active cardiac symptoms Objective vital signs Vital Sign Date Time Temp Pulse Resp B/P (MAP) Pulse Ox O2 Delivery O2 Flow Rate FiO2 03/19/25 09:06 72 167/87 03/19/25 08:57 98.0 17 92 98.0 03/19/25 08:00 Room Air* 0 21 Total Intake and Output 03/18/25 03/18/25 03/19/25 15:00 23:00 07:00 Intake Total 1100 ml 800 ml 100 ml Output Total 600 ml Balance 1100 ml 200 ml 100 ml medications Current Medications Medications Dose Ordered Sig/Conor Route Start Time Stop Time Status Last Admin Dose Admin Acetaminophen 650 mg Q6HP PRN PO 03/17/25 22:15 Acetaminophen/ Hydrocodone Bitart 1 tab Q6HPRN PRN PO 03/17/25 22:15 03/18/25 04:01 1 TAB Ondansetron HCl 4 mg Q4HP PRN IV 03/17/25 22:15 Nitroglycerin 0.4 mg Q5MINP PRN SL 03/17/25 22:15 03/18/25 00:15 0.4 MG Aspirin 81 mg DAILY PO 03/18/25 10:00 03/19/25 09:05 81 MG Clonidine HCl 0.1 mg BID PRN PO 03/18/25 01:30 Morphine Sulfate 2 mg Q4HPRN PRN IV 03/18/25 08:30 03/18/25 09:10 2 MG Morphine Sulfate 2 mg Q30M PRN IV 03/18/25 08:30 Hydralazine HCl 10 mg Q6HP PRN IV 03/18/25 12:45 03/18/25 15:20 10 MG Atorvastatin Calcium 40 mg HS PO 03/18/25 22:00 03/18/25 21:50 40 MG Losartan Potassium 50 mg BID PO 03/18/25 22:00 03/19/25 09:05 50 MG Labetalol HCl 100 mg Q12HR PO 03/18/25 22:00 03/19/25 09:06 100 MG Heparin Sodium/ Dextrose 250 ml @ 11 mls/hr [id number] IV 03/19/25 08:15 03/19/25 08:40 11 MLS/HR Examination: LUNGS:Normal, CVS:Normal, NEURO:Normal laboratory and microbiology Laboratory Tests 03/19/25 06:30 Test 03/19/25 06:30 Range/Units Serum Glucose 120 H 74-106 mg/dL Problem List/Assessment/Plan Problem List/Assessment/Plan Chest pain with associated Wellen's Syndrome Rule out coronary artery disease Hypertensive urgency Dyslipidemia Prediabetes Plan/Recommendation (Dr. 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 States he would like to think about it before making an informed decision. All questions were answered to the full extend. Denies any active cardiac symptoms. Kindly notify cardiology on patient's decision. In the meantime, continue medical management. Thank you for allowing us to care for this patient. Please call with any questions or concerns. This medical document was created using an electronic medical record system with voice recognition software and computerized dictation system. Although this document has been carefully reviewed, there might still be some phonetic and typographical errors. Occasional wrong-word or ``sound-alike substitutions may have occurred due to the inherent limitations of voice recognition software. These areas are purely typographical due to imperfections of the software programs and do not reflect any compromise in the patient's medical care. Please read the chart carefully and recognize, using context, where these substitutions have occurred. Plan discussed with: Patient, Other Date of Service: Mar 19, 2025 Billing Provider: MILTON RAO Cardiology Common Codes: [id number] HOSP CARE([facility] MILTON RAO Mar 19, 2025 11:28
[2025-03-19 15:46] LABS: INR 0.96 (0.9-1.15); Partial Thromboplastin Time 53.2 SEC (24.5-34.5); Prothrombin Time 10.2 sec (9.3-11.8)
--- NOTE | 2025-03-19 15:52 | DVHPN2 ---
Progress Note - Dictate Date Seen: Mar 19, 2025 Medical Necessity Reason Pt with a Central, PICC or Fol: No Subjective Patient is evaluated by Cardiology this morning and recommend. However patient refused because he is scared and worried. I have talked with the patient along with the nurse at bedside and he wants time to think about having angiogram. Meantime no complaints of chest pain shortness for breath. vital signs Vital Sign Date Time Temp Pulse Resp B/P (MAP) Pulse Ox O2 Delivery O2 Flow Rate FiO2 03/19/25 09:06 72 167/87 03/19/25 08:57 98.0 17 92 98.0 03/19/25 08:00 Room Air* 0 21 Total Intake and Output 03/18/25 03/18/25 03/19/25 15:00 23:00 07:00 Intake Total 1100 ml 800 ml 100 ml Output Total 600 ml Balance 1100 ml 200 ml 100 ml medications Current Medications Medications Dose Ordered Sig/Conor Route Start Time Stop Time Status Last Admin Dose Admin Acetaminophen 650 mg Q6HP PRN PO 03/17/25 22:15 Acetaminophen/ Hydrocodone Bitart 1 tab Q6HPRN PRN PO 03/17/25 22:15 03/18/25 04:01 1 TAB Ondansetron HCl 4 mg Q4HP PRN IV 03/17/25 22:15 Nitroglycerin 0.4 mg Q5MINP PRN SL 03/17/25 22:15 03/18/25 00:15 0.4 MG Aspirin 81 mg DAILY PO 03/18/25 10:00 03/19/25 09:05 81 MG Clonidine HCl 0.1 mg BID PRN PO 03/18/25 01:30 Morphine Sulfate 2 mg Q4HPRN PRN IV 03/18/25 08:30 03/18/25 09:10 2 MG Morphine Sulfate 2 mg Q30M PRN IV 03/18/25 08:30 Hydralazine HCl 10 mg Q6HP PRN IV 03/18/25 12:45 03/18/25 15:20 10 MG Atorvastatin Calcium 40 mg HS PO 03/18/25 22:00 03/18/25 21:50 40 MG Losartan Potassium 50 mg BID PO 03/18/25 22:00 03/19/25 09:05 50 MG Heparin Sodium/ Dextrose 250 ml @ 11 mls/hr [id number] IV 03/19/25 08:15 03/19/25 08:40 11 MLS/HR Metoprolol Succinate 100 mg DAILY PO 03/20/25 10:00 objective Alert awake oriented x3. Able to speak [place] and may his needs known and able to communicate without issues. HEENT neck supple no JVD. Heart regular rate and rhythm S1-S2. Lungs fair air movement without wheezing. Abdomen soft positive bowel sounds. Extremities no edema positive pulses. laboratory and microbiology Laboratory Tests 03/19/25 06:30 Test 03/19/25 06:30 Range/Units Serum Glucose 120 H 74-106 mg/dL Assessment/Plan Patient's troponins have been normal. However risk assessment analyst recommending coronary angiogram. Patient wants to think about it. If patient decides not to have angiogram I will prepare him for discharge tomorrow morning. This is clearly discussed with the him along with the nurse at bedside. For now continue present management. Further clinical management per clinical course and recommendations from consultants/patient. Problems(with codes): (1) Acute myocardial ischemia Plan discussed with: Patient, Other CR HARMAN MD Mar 19, 2025 15:52
--- NOTE | 2025-03-19 16:18 | CONS ---
Pharmacy Clinical Information: HEPARIN DRIP, ACS PROTOCOL @8272 APTT 53.2 - NO BOLUS, NO CHANGE; CONTINUE HEPARIN DRIP RATE @ 1100 UNITS/HR NEXT APTT DRAW SCHEDULED @2100 PER RX PROTOCOL CONFIRMED AND READ BACK WITH RN OLIVIER RUVALCABA [facility] RESIDENT Mar 19, 2025 16:18
[2025-03-19 23:48] LABS: INR 0.98 (0.9-1.15); Prothrombin Time 10.4 sec (9.3-11.8)
[2025-03-19 23:52] LABS: Partial Thromboplastin Time 107.7 SEC (24.5-34.5)
[2025-03-20] VITALS (7 sets, daily range): BP systolic 104–143; BP diastolic 55–89; PULSE 68–83; RESP 16–20; TEMP 98.1–99; O2SAT 95–98
[2025-03-20] MEDS: HEPARIN DRIP/D5W 100UNITS/ML 250 ML IV SCH (01:10)
[2025-03-20 06:46] LABS: Hematocrit 40.2 % (41.0-53.0); Hemoglobin 13.5 g/dL (13.5-17.5); Mean Corpuscular Hemoglobin 28.7 pg (28.0-32.0); Mean Corpuscular Volume 85.8 fL (80.0-100.0); Nucleated Red Blood Cells % 0.0 %
[2025-03-20 06:50] LABS: Anion Gap 8 (5-15); Calcium 9.3 mg/dL (8.7-10.4); Carbon Dioxide 28 mmol/L (20-31); Chloride 105 mmol/L (98-107); Potassium 4.0 mmol/L (3.5-5.1); Sodium 141 mmol/L (136-145)
[2025-03-20 06:56] LABS: BUN/Creatinine Ratio 16.5 (10.0-20.0); Blood Urea Nitrogen 17 mg/dL (9-23)
[2025-03-20 06:57] LABS: Glucose 107 mg/dL (74-106)
[2025-03-20 07:59] LABS: INR 0.98 (0.9-1.15); Prothrombin Time 10.4 sec (9.3-11.8)
[2025-03-20 08:08] LABS: Partial Thromboplastin Time 71.2 SEC (24.5-34.5)
[2025-03-20] MEDS: METOPROLOL SUCCINATE XL 50 MG TAB PO SCH (10:07)
--- NOTE | 2025-03-20 12:31 | DVHPN2 ---
Consult Progress Note Date Seen: Mar 20, 2025 Subjective Review of Systems: CVS:Normal, RESPIRATORY:Normal, NEURO:Normal Objective vital signs Vital Sign Date Time Temp Pulse Resp B/P (MAP) Pulse Ox O2 Delivery O2 Flow Rate FiO2 03/20/25 10:07 81 147/88 03/20/25 08:00 20 97 Room Air* 0 21 03/19/25 16:40 98.2 98.2 Total Intake and Output 03/19/25 03/19/25 03/20/25 15:00 23:00 07:00 Intake Total 100 ml 0 ml Output Total 200 ml Balance -100 ml 0 ml medications Current Medications Medications Dose Ordered Sig/Conor Route Start Time Stop Time Status Last Admin Dose Admin Acetaminophen 650 mg Q6HP PRN PO 03/17/25 22:15 Acetaminophen/ Hydrocodone Bitart 1 tab Q6HPRN PRN PO 03/17/25 22:15 03/18/25 04:01 1 TAB Ondansetron HCl 4 mg Q4HP PRN IV 03/17/25 22:15 Nitroglycerin 0.4 mg Q5MINP PRN SL 03/17/25 22:15 03/18/25 00:15 0.4 MG Aspirin 81 mg DAILY PO 03/18/25 10:00 03/19/25 09:05 81 MG Clonidine HCl 0.1 mg BID PRN PO 03/18/25 01:30 Morphine Sulfate 2 mg Q4HPRN PRN IV 03/18/25 08:30 03/18/25 09:10 2 MG Morphine Sulfate 2 mg Q30M PRN IV 03/18/25 08:30 Hydralazine HCl 10 mg Q6HP PRN IV 03/18/25 12:45 03/18/25 15:20 10 MG Atorvastatin Calcium 40 mg HS PO 03/18/25 22:00 03/19/25 22:13 40 MG Losartan Potassium 50 mg BID PO 03/18/25 22:00 03/20/25 10:07 50 MG Metoprolol Succinate 100 mg DAILY PO 03/20/25 10:00 03/20/25 10:07 100 MG Heparin Sodium/ Dextrose 250 ml @ 8 mls/hr Q24H IV 03/20/25 01:00 03/20/25 01:10 8 MLS/HR Examination: LUNGS:Normal, CVS:Normal, NEURO:Normal laboratory and microbiology Laboratory Tests 03/20/25 05:27 Test 03/20/25 05:27 Range/Units Serum Glucose 107 H 74-106 mg/dL Problem List/Assessment/Plan Problem List/Assessment/Plan Chest pain with associated Wellen's Syndrome Rule out coronary artery disease Mitral/aortic insufficiency, moderate degree Hypertensive urgency Dyslipidemia Prediabetes Plan/Recommendation (Dr. 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 Scheduled with Dr. Mei on 03/21/2025. Thank you for allowing us to care for this patient. Please call with any questions or concerns. This medical document was created using an electronic medical record system with voice recognition software and computerized dictation system. Although this document has been carefully reviewed, there might still be some phonetic and typographical errors. Occasional wrong-word or ``sound-alike substitutions may have occurred due to the inherent limitations of voice recognition software. These areas are purely typographical due to imperfections of the software programs and do not reflect any compromise in the patient's medical care. Please read the chart carefully and recognize, using context, where these substitutions have occurred. Plan discussed with: Patient, Other Date of Service: Mar 20, 2025 Billing Provider: MILTON RAO Cardiology Common Codes: [id number] HOSP CARE([facility] MILTON RAO Mar 20, 2025 12:31
--- NOTE | 2025-03-20 13:57 | DVHPN2 ---
Progress Note - Dictate Date Seen: Mar 20, 2025 Medical Necessity Reason Pt with a Central, PICC or Fol: No Subjective Patient now decided to undergo coronary angiogram. Apparently it is scheduled for tomorrow afternoon. Meantime patient clinically remained stable without any chest pain or shortness for breath. vital signs Vital Sign Date Time Temp Pulse Resp B/P (MAP) Pulse Ox O2 Delivery O2 Flow Rate FiO2 03/20/25 10:07 81 147/88 03/20/25 08:00 20 97 Room Air* 0 21 03/19/25 16:40 98.2 98.2 Total Intake and Output 03/19/25 03/19/25 03/20/25 15:00 23:00 07:00 Intake Total 100 ml 0 ml Output Total 200 ml Balance -100 ml 0 ml medications Current Medications Medications Dose Ordered Sig/Conor Route Start Time Stop Time Status Last Admin Dose Admin Acetaminophen 650 mg Q6HP PRN PO 03/17/25 22:15 Acetaminophen/ Hydrocodone Bitart 1 tab Q6HPRN PRN PO 03/17/25 22:15 03/18/25 04:01 1 TAB Ondansetron HCl 4 mg Q4HP PRN IV 03/17/25 22:15 Nitroglycerin 0.4 mg Q5MINP PRN SL 03/17/25 22:15 03/18/25 00:15 0.4 MG Aspirin 81 mg DAILY PO 03/18/25 10:00 03/19/25 09:05 81 MG Clonidine HCl 0.1 mg BID PRN PO 03/18/25 01:30 Morphine Sulfate 2 mg Q4HPRN PRN IV 03/18/25 08:30 03/18/25 09:10 2 MG Morphine Sulfate 2 mg Q30M PRN IV 03/18/25 08:30 Hydralazine HCl 10 mg Q6HP PRN IV 03/18/25 12:45 03/18/25 15:20 10 MG Atorvastatin Calcium 40 mg HS PO 03/18/25 22:00 03/19/25 22:13 40 MG Losartan Potassium 50 mg BID PO 03/18/25 22:00 03/20/25 10:07 50 MG Metoprolol Succinate 100 mg DAILY PO 03/20/25 10:00 03/20/25 10:07 100 MG Heparin Sodium/ Dextrose 250 ml @ 8 mls/hr Q24H IV 03/20/25 01:00 03/20/25 01:10 8 MLS/HR Nifedipine 30 mg DAILY PO 03/21/25 10:00 objective Alert awake oriented x3. Able to speak [place] and may his needs known and able to communicate without issues. HEENT neck supple no JVD. Heart regular rate and rhythm S1-S2. Lungs fair air movement without wheezing. Abdomen soft positive bowel sounds. Extremities no edema positive pulses. laboratory and microbiology Laboratory Tests 03/20/25 05:27 Test 03/20/25 05:27 Range/Units Serum Glucose 107 H 74-106 mg/dL Assessment/Plan Continue current IV heparin drip per Cardiology recommendations. We will DC tomorrow morning 6 hours prior to coronary angiogram. NPO after midnight. Continue rest of supportive care and treatment. Further clinical management per clinical course and angiogram results. Discussed with the nurse regarding care plan. Problems(with codes): (1) Acute myocardial ischemia Plan discussed with: Other CR HARMAN MD Mar 20, 2025 13:56
[2025-03-20 14:15] LABS: INR 0.98 (0.9-1.15); Prothrombin Time 10.4 sec (9.3-11.8)
[2025-03-20 14:17] LABS: Partial Thromboplastin Time 74.3 SEC (24.5-34.5)
[2025-03-20 19:32] LABS: INR 0.97 (0.9-1.15); Partial Thromboplastin Time 58.7 SEC (24.5-34.5); Prothrombin Time 10.3 sec (9.3-11.8)
--- NOTE | 2025-03-20 20:07 | CONS ---
Pharmacy Clinical Information: PTT=58.7 @ 1857, NO CHANGES, THERAPEUTIC X 2, DRIP TO STOP AT 0500 PER MD SO NO PTT ORDERED. CONTINUE CURRENT RATE AT 800 UNITS/HR=8 ML/HR. VONDA NUNEZ Mar 20, 2025 20:07
[2025-03-21] VITALS (10 sets, daily range): BP systolic 106–146; BP diastolic 56–73; PULSE 63–85; RESP 13–20; TEMP 98–99.3; O2SAT 92–97
[2025-03-21 06:53] LABS: Hematocrit 37.9 % (41.0-53.0); Hemoglobin 12.7 g/dL (13.5-17.5); Mean Corpuscular Hemoglobin 28.7 pg (28.0-32.0); Mean Corpuscular Volume 86.0 fL (80.0-100.0); Nucleated Red Blood Cells % 0.1 %
[2025-03-21 07:05] LABS: Anion Gap 8 (5-15); Carbon Dioxide 27 mmol/L (20-31); Chloride 106 mmol/L (98-107); Potassium 3.9 mmol/L (3.5-5.1); Sodium 141 mmol/L (136-145)
[2025-03-21 07:06] LABS: Calcium 9.1 mg/dL (8.7-10.4); INR 0.97 (0.9-1.15); Partial Thromboplastin Time 45.8 SEC (24.5-34.5); Prothrombin Time 10.3 sec (9.3-11.8)
[2025-03-21 07:11] LABS: BUN/Creatinine Ratio 17.3 (10.0-20.0); Blood Urea Nitrogen 18 mg/dL (9-23); Glucose 105 mg/dL (74-106)
[2025-03-21] MEDS: IODIXANOL 320MG/ML 100ML BTL IV ONE (08:08)
[2025-03-21] MEDS: ANGIOMAX 250 MG VIAL IV ONE (08:14)
[2025-03-21] MEDS: MIDAZOLAM HCL 2MG/2ML 2ml VIAL (1mg/ml) ONE (08:14)
[2025-03-21] MEDS: SODIUM CHL 0.9% 0 ML ONE (08:14)
[2025-03-21] MEDS: HEPARIN SODIUM (PORCINE) 5000 UNITS/ML 1ML VIAL ONE (08:14)
[2025-03-21] MEDS: fentaNYL CITRATE 100 MCG/2 ML VL ONE (08:14)
[2025-03-21] MEDS: VERAPAMIL 2.5MG/ML INJ 2ML VIAL IV ONE (08:14)
[2025-03-21] MEDS: LIDOCAINE 2%HCL (LOCAL ANESTH.) INJ 20ML MDV ONE (08:15)
--- NOTE | 2025-03-21 10:49 | DVHOP2 ---
Operative Report - 2 Report Details Date: 03/21/25 Preop Diagnosis: Coronary artery disease Postop Diagnosis: Coronary artery disease Surgeon: Berna Mei MD Anesthesiologist: Conscious sedation. I personally ordered the administration of conscious se dation throughout the procedure for the patient and observed and supervised the administration of medication for a proximally 20 minutes throughout the course of the procedure. Anesthesia: Mac, Local Consent: The patient was informed of the risks and benefits of the procedure. These include but are not limited to complications of anesthesia, postoperative infection, incomplete relief of symptoms, recurrence of symptoms, damage to blood vessels, nerves and tendons, deep venous thrombosis, pulmonary embolism and possible need for repeat surgery in the future. Complications: No complications Findings: Coronary artery disease. Indications for Surgery: Chest pain. Acute coronary syndrome. Name of Procedure Performed Left heart catheterization. Bilateral cine coronary angiography. Left ventriculography. Procedure Details Procedure Details: Prior local anesthesia with 2% lidocaine to the right wrist and full informed consent obtained the patient was prepped and draped in usual fashion followed by placement of a slim catheter into the radial artery through which a tiger catheter was used for ventriculography and a multipurpose catheter was used for cannulation of both right and left coronary ostia without complications. Hemodynamics: Aortic blood pressure was 70/50. End-diastolic pressure was five. There was no gradient across the aortic valve on pullback. 500 cc bolus of normal saline was given at the determination of the low filling pressures. Coronary anatomy: The RCA is a large dominant vessel it is normal in its proximal mid and distal segments. The posterolateral branches were also normal. The PDA has moderate to diffuse disease. There was a mid 95% stenosis and a tandem 80% stenosis distal to that lesion. The vessel appears to be a good target vessel for revascularization. The left main is a medium caliber vessel it has a mid 75% stenosis. There is distal haziness with the extension of plaque from the distal left main into the proximal LAD and proximal circumflex. This is indicative of significant plaque burden in the distal left main circumflex and ostial LAD. The left anterior descending coronary artery is a medium caliber vessel with an ostial narrowing of about 75-80% with haziness as previously mentioned. It is 99% subtotally stenosed at its proximal portion. There is intracoronary collaterals to the distal left anterior descending coronary artery and to the mid left anterior descending from the right coronary artery and from the septal perforators. A diagonal artery also fills late has moderate to diffuse disease throughout. The circumflex is a large vessel with what appears to be proximal 60-75% ostial proximal stenosis. Two obtuse marginals were noted. The mid distal marginal has an 80% stenosis. 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 Ventriculography in the BLACKMON projection shows an EF of 55% with anterior hypokinesis. Impression: three-vessel coronary artery disease as delineated above with what appears to be a good target vessel for revascularization/bypass at the level of the marginal and left anterior descending coronary arteries. Normal ventricular end-diastolic pressure. Normal ejection fraction. Recommendations: Patient will be referred for revascularization and coronary bypass grafting. Condition Fair Disposition Still a Patient Date of Service: Mar 21, 2025 Billing Provider: BERNA MEI Sr., MD Cardiology Common Codes: 55612-YFKXCVW INP/OBS CARE (High) Cardiology Procedure Codes: 72075-IXDR HEART CATH W/INTRA INJ BERNA MEI Sr., MD Mar 21, 2025 10:49
--- NOTE | 2025-03-21 14:51 | DVHPN2 ---
Progress Note - Dictate Date Seen: Mar 21, 2025 Medical Necessity Reason Pt with a Central, PICC or Fol: No Subjective Underwent a coronary angiogram this morning showed a triple-vessel disease. Cardiology recommending transferred to higher level of care for coronary artery bypass graft surgery. Patient remains asymptomatic. He is requesting to go home for the holidays and have CABG done as an elective procedure if possible. vital signs Vital Sign Date Time Temp Pulse Resp B/P (MAP) Pulse Ox O2 Delivery O2 Flow Rate FiO2 03/21/25 10:55 63 20 128/65 (86) 95 03/21/25 09:55 98.9 98.9 03/20/25 20:00 Room Air* 0 21 Total Intake and Output 03/20/25 03/20/25 03/21/25 15:00 23:00 07:00 Intake Total 240 ml 0 ml Output Total 300 ml Balance 240 ml -300 ml medications Current Medications Medications Dose Ordered Sig/Conor Route Start Time Stop Time Status Last Admin Dose Admin Acetaminophen 650 mg Q6HP PRN PO 03/17/25 22:15 Acetaminophen/ Hydrocodone Bitart 1 tab Q6HPRN PRN PO 03/17/25 22:15 03/21/25 11:51 1 TAB Ondansetron HCl 4 mg Q4HP PRN IV 03/17/25 22:15 Nitroglycerin 0.4 mg Q5MINP PRN SL 03/17/25 22:15 03/18/25 00:15 0.4 MG Aspirin 81 mg DAILY PO 03/18/25 10:00 03/19/25 09:05 81 MG Clonidine HCl 0.1 mg BID PRN PO 03/18/25 01:30 Morphine Sulfate 2 mg Q4HPRN PRN IV 03/18/25 08:30 03/18/25 09:10 2 MG Morphine Sulfate 2 mg Q30M PRN IV 03/18/25 08:30 Hydralazine HCl 10 mg Q6HP PRN IV 03/18/25 12:45 03/18/25 15:20 10 MG Atorvastatin Calcium 40 mg HS PO 03/18/25 22:00 03/20/25 21:15 40 MG Losartan Potassium 50 mg BID PO 03/18/25 22:00 03/20/25 21:16 50 MG Metoprolol Succinate 100 mg DAILY PO 03/20/25 10:00 03/20/25 10:07 100 MG Nifedipine 30 mg DAILY PO 03/21/25 10:00 objective Alert awake oriented x3. No complaints. HEENT neck supple no JVD. Heart regular rate and rhythm S1-S2. Lungs without rales wheezes. Abdomen soft positive bowel sounds. Extremities no edema laboratory and microbiology Laboratory Tests 03/21/25 06:14 Test 03/21/25 06:14 Range/Units Serum Glucose 105 74-106 mg/dL Assessment/Plan Continue current cardiac medications. Initiate transferred to higher level of care for bypass graft per Cardiology recommendations. We will rate discussed with the fashion illustrator regarding patient's request to go home and have elective surgery done in 1-2 weeks after holidays. Otherwise clinically stable for transfer. Discussed with the patient along with the nurse at bedside regarding care plan. Problems(with codes): (1) Triple vessel coronary artery disease Plan discussed with: Patient CR HARMAN MD Mar 21, 2025 14:51
[2025-03-22 01:00] VITALS: BP 132/71; PULSE 82; RESP 16; TEMP 98.3; O2SAT 97
--- NOTE | 2025-03-22 13:46 | DVHDS2 ---
Discharge Summary Date of Admission Mar 17, 2025 at 22:06 Date of Discharge: Mar 21, 2025 Labs/Diagnostic Data: Laboratory Results Test 03/21/25 06:14 03/18/25 10:06 03/17/25 19:20 White Blood Count 8.7 10^3/uL (4.4-10.8) Red Blood Count 4.41 10^6/uL (4.5-5.90) Hemoglobin 12.7 g/dL (13.5-17.5) Hematocrit 37.9 % (41.0-53.0) Mean Corpuscular Volume 86.0 fL (80.0-100.0) Mean Corpuscular Hemoglobin 28.7 pg (28.0-32.0) Mean Corpuscular Hemoglobin Concent 33.4 g/dL (32.0-36.0) Red Cell Distribution Width 13.7 % (11.8-14.3) Platelet Count 284 10^3/uL (140-450) Mean Platelet Volume 7.9 fL (6.9-10.8) Neutrophils (%) (Auto) 69.8 % (37.0-80.0) Lymphocytes (%) (Auto) 19.8 % (10.0-50.0) Monocytes (%) (Auto) 9.2 % (0.0-12.0) Eosinophils (%) (Auto) 1.0 % (0.0-7.0) Basophils (%) (Auto) 0.2 % (0.0-2.0) Neutrophils # (Auto) 6.0 10 ^3/uL (1.6-8.6) Lymphocytes # (Auto) 1.7 10 ^3/uL (0.4-5.4) Monocytes # (Auto) 0.8 10 ^3/uL (0-1.3) Eosinophils # (Auto) 0.1 10 ^3/uL (0-0.8) Basophils # (Auto) 0 10 ^3/uL (0-0.2) Nucleated Red Blood Cells 0.1 % Prothrombin Time 10.3 sec (9.3-11.8) Prothrombin Time INR 0.97 (0.9-1.15) Activated Partial Thromboplast Time 45.8 SEC (24.5-34.5) Sodium Level 141 mmol/L (136-145) Potassium Level 3.9 mmol/L (3.5-5.1) Chloride Level 106 mmol/L (98-107) Carbon Dioxide Level 27 mmol/L (20-31) Anion Gap 8 (5-15) Blood Urea Nitrogen 18 mg/dL (9-23) Creatinine 1.04 mg/dL (0.700-1.30) Glomerular Filtration Rate Calc 74 mL/min (>90) BUN/Creatinine Ratio 17.3 (10.0-20.0) Serum Glucose 105 mg/dL (74-106) Calcium Level 9.1 mg/dL (8.7-10.4) Hemoglobin A1c 6.1 % A1C (<5.7) Magnesium Level 2.1 mg/dL (1.6-2.6) Triglycerides Level 61 mg/dL (< 150) Cholesterol Level 264 mg/dL (< 200) LDL Cholesterol 192 mg/dL (< 100) HDL Cholesterol 71 mg/dL (40-59) Thyroid Stimulating Hormone (TSH) 0.97 uIU/mL (0.55-4.78) Troponin I High Sensitivity 17 ng/L (</=54) Other Laboratory Tests 03/21/25 06:14 Brief Hx & Hospital Course: Information in this HPI is limited due to the patient being a poor historian. States he does not know his past medical history except for hypertension. 79-year-old male with past medical history of hypertension presents with complaints of shortness of breath and chest pressure x2 days. Patient initially went to [facility] urgent care where she was deferred to go to the emergency department for symptoms. Chest pain is substernal and pressure-like. Patient is also complaining of low back pain. EN route to the hospital with the patient was treated with SL NTG, and aspirin. On arrival to the emergency department patient was hypertensive with a blood pressure 175/106 with a heart rate 78. During the emergency department evaluation troponins 17/16. CBC: W8.9, H&H 30.6/41.3, PLT 300. BMP: Na 140, K4.2, BUN 13, creatinine 0.98, GFR 79. At this time patient is also complaining of back pain radiating into his right leg. There are no complaints of fevers, chills, dizziness, headaches, palpitations, leg swelling. He is admitted and noted to have normal troponins. Patient however had exertional chest pain. Therefore he had a coronary angiogram showed a severe triple-vessel coronary artery disease. Therefore cardiology recommended transferred to higher level of care for coronary artery bypass graft surgery. I have discussed this with the patient on multiple occasions along with the nurse at bedside. He has verbalized understanding of these and agreed for transferred to higher level of care to undergo surgery. Therefore social work lecturer/case management were involved and they are able to find him a bed at [facility]. He has been transferred there in stable condition. Operations or Procedures Operative Report - 2 Report Details Date: 03/21/25 Preop Diagnosis: Coronary artery disease Postop Diagnosis: Coronary artery disease Surgeon: Berna Mei MD Anesthesiologist: Conscious sedation. I personally ordered the administration of conscious sedation throughout the procedure for the patient and observed and supervised the administration of medication for a proximally 20 minutes throughout the course of the procedure. Anesthesia: Mac, Local Consent: The patient was informed of the risks and benefits of the procedure. These include but are not limited to complications of anesthesia, postoperative infection, incomplete relief of symptoms, recurrence of symptoms, damage to blood vessels, nerves and tendons, deep venous thrombosis, pulmonary embolism and possible need for repeat surgery in the future. Complications: No complications Findings: Coronary artery disease. Indications for Surgery: Chest pain. Acute coronary syndrome. Name of Procedure Performed Left heart catheterization. Bilateral cine coronary angiography. Left ventriculography. Procedure Details Procedure Details: Prior local anesthesia with 2% lidocaine to the right wrist and full informed consent obtained the patient was prepped and draped in usual fashion followed by placement of a slim catheter into the radial artery through which a tiger catheter was used for ventriculography and a multipurpose catheter was used for cannulation of both right and left coronary ostia without complications. Hemodynamics: Aortic blood pressure was 70/50. End-diastolic pressure was five. There was no gradient across the aortic valve on pullback. 500 cc bolus of normal saline was given at the determination of the low filling pressures. Coronary anatomy: The RCA is a large dominant vessel it is normal in its proximal mid and distal segments. The posterolateral branches were also normal. The PDA has moderate to diffuse disease. There was a mid 95% stenosis and a tandem 80% stenosis distal to that lesion. The vessel appears to be a good target vessel for revascularization. The left main is a medium caliber vessel it has a mid 75% stenosis. There is distal haziness with the extension of plaque from the distal left main into the proximal LAD and proximal circumflex. This is indicative of significant plaque burden in the distal left main circumflex and ostial LAD. The left anterior descending coronary artery is a medium caliber vessel with an ostial narrowing of about 75-80% with haziness as previously mentioned. It is 99% subtotally stenosed at its proximal portion. There is intracoronary collaterals to the distal left anterior descending coronary artery and to the mid left anterior descending from the right coronary artery and from the septal perforators. A diagonal artery also fills late has moderate to diffuse disease throughout. The circumflex is a large vessel with what appears to be proximal 60-75% ostial proximal stenosis. Two obtuse marginals were noted. The mid distal marginal has an 80% stenosis. 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 Ventriculography in the BLACKMON projection shows an EF of 55% with anterior hypokinesis. Impression: three-vessel coronary artery disease as delineated above with what appears to be a good target vessel for revascularization/bypass at the level of the marginal and left anterior descending coronary arteries. Normal ventricular end-diastolic pressure. Normal ejection fraction. Recommendations: Patient will be referred for revascularization and coronary bypass grafting. Condition Fair Disposition 2 Still a Patient Date of Service: Mar 21, 2025 Billing Provider: BERNA MEI Sr., MD Cardiology Common Codes: [id number] INP/OBS CARE (High) Cardiology Procedure Codes: 66552-HHHO HEART CATH W/INTRA INJ Condition at Discharge: Fair Final Diagnosis/Problems List Coronary artery disease status post coronary angiogram shows triple-vessel disease requiring CABG surgery Discharge Disposition: Acute Care Facility Discharge Instruct/Medications Diet: Consistent carbohydrate, Cardiac 2g Na,low cholest Activity: No Restrictions, As Tolerated Medications: See transfer med reconciliation No Active Prescriptions or Reported Meds Discharge Statement: "Patient was advised to return to the ER or call 911 if any headaches, dizziness, shortness of breath, chest pain, abdominal pain, bleeding, fevers, or worsening of medical condition. Patient was counseled about treatment plan, medications, possible side effects, patientverbalized understanding. All questions were answered to the best of my ability. This discharge took greater then 30 minutes in planning, reviewing documentation, counseling the patient, and discussing with other team members." ASSESSMENT ASSESSMENT Assessment Coronary artery disease status post coronary angiogram shows triple-vessel disease requiring CABG surgery CR HARMAN MD Mar 22, 2025 13:46
== END 2025-03-22 02:46 | disposition short-term general hospital (02) | DRG 287 ==
LOC: ER 17:30 → EDBD 17:30 → OVERFLOW 22:06 → TELE-EAST 03-18 17:52
PROVIDERS: ADMIT Internal Medicine; ATTEND Internal Medicine
PROC: 4A023N7 Measurement of Cardiac Sampling and Pressure, Left Heart, Percutaneous Approach (ICD-10-PCS; principal; 2025-03-21)
PROC: B2111ZZ Fluoroscopy of Multiple Coronary Arteries using Low Osmolar Contrast (ICD-10-PCS; 2025-03-21)
PROC: B2151ZZ Fluoroscopy of Left Heart using Low Osmolar Contrast (ICD-10-PCS; 2025-03-21)
DX: I25.10 Atherosclerotic heart disease of native coronary artery without angina pectoris (principal); I51.3 Intracardiac thrombosis, not elsewhere classified; I24.9 Acute ischemic heart disease, unspecified; I16.0 Hypertensive urgency; I08.0 Rheumatic disorders of both mitral and aortic valves; E78.5 Hyperlipidemia, unspecified; R73.03 Prediabetes; I10 Essential (primary) hypertension
CPT/HCPCS: 36415; 70450; 71046; 72100; 80048; 80061; 83036; 83735; 84443; 84484; 85025; 85610; 85730; 86850; 86900; 86901; 93306; 93458; 96374; 97110; 97116; 97163; 97530; 99152; 99291; G0378; J2250; J2405; Q9967